=== PATIENT | female | born 1995 | race Caucasian/White ===

== ENCOUNTER → 2017-09-13 16:36 | Outpatient (CLI) | payer BC, MEDICAID, SELFPAY ==
[2017-09-13 20:06] LABS: Chlamydia Trachomatis by PCR Negative (Negative); Neisserai gonorrhoeae by PCR Negative (Negative); Probe Check PASS; Sample Adequacy Control PASS; Specimen Processing Control PASS
== END ==
PROVIDERS: Visit Provider Obstetrics & Gynecology
DX: Z11.3 Encounter for screening for infections with a predominantly sexual mode of transmission (principal)
CPT/HCPCS: 87491; 87591

== ENCOUNTER → 2018-08-05 15:35 | Outpatient (CLI) | payer SELFPAY | PROVIDERS: Visit Provider Obstetrics & Gynecology | DX: Z12.4 Encounter for screening for malignant neoplasm of cervix (principal) | CPT/HCPCS: 88175; G0145 ==

== ENCOUNTER → 2020-12-28 | Outpatient (CLI) | payer BC, SELFPAY ==
[2020-12-31 09:36] LABS: Chlamydia By Nucleic Acid AMP Negative (Negative)
[2020-12-31 10:38] LABS: Gonococcus By Nucleic Acid AMP Negative (Negative)
== END | disposition home or self-care (01) ==
LOC: LABSPEC 13:42
PROVIDERS: Visit Provider Obstetrics & Gynecology
DX: Z11.3 Encounter for screening for infections with a predominantly sexual mode of transmission (principal)
CPT/HCPCS: 87491; 87591

== ENCOUNTER → 2021-01-11 09:56 | Outpatient (CLI) | payer BC, SELFPAY ==
[2021-01-11 11:04] LABS: Glucose 75GTT - Fasting 105 mg/dL (70-99)
[2021-01-11 11:16] LABS: Insulin 75GTT - Fasting 17.3 mU/L (2.6-37.6)
[2021-01-11 11:59] LABS: Glucose 75GTT - 60 minutes 166 mg/dL (100-160)
[2021-01-11 12:04] LABS: Glucose 75GTT - 30 minutes 152 mg/dL (100-160)
[2021-01-11 12:05] LABS: Insulin 75GTT - 30 MIN 75.6 mU/L (Not Estab.)
[2021-01-11 12:58] LABS: Glucose 75GTT - 120 minutes 138 mg/dL (70-140)
[2021-01-11 13:05] LABS: Insulin 75GTT - 120 min 89.7 mU/L (Not Estab.)
== END ==
PROVIDERS: Referring Provider Obstetrics & Gynecology; Visit Provider Obstetrics & Gynecology
DX: R73.09 Other abnormal glucose (principal); E28.2 Polycystic ovarian syndrome; Z83.3 Family history of diabetes mellitus
CPT/HCPCS: 36415; 82951; 82952; 83525

== ENCOUNTER → 2021-01-24 10:17 | Outpatient (CLI) | payer BC, SELFPAY ==
[2021-01-24 11:55] LABS: T3 Total - Triiodothyronine 1.32 ng/mL (0.6-1.81)
[2021-01-24 11:59] LABS: Estradiol 35.7 pg/mL; Prolactin 5.2 ng/mL; T4 Free Direct 1.03 ng/dL (0.76-1.46); Thyroid Stim Hormone (TSH) 1.22 uIU/mL (0.358-3.74)
[2021-01-25 04:08] LABS: DHEA Sulfate 64.5 ug/dL (110.0-431.7)
[2021-01-25 08:55] LABS: Sex Hormone-binding Globulin 31.6 nmol/L (24.6-122.0)
[2021-01-27 22:08] LABS: 17-Hydroxyprogesterone 27 ng/dL (.)
== END ==
PROVIDERS: Visit Provider Obstetrics & Gynecology
DX: R73.09 Other abnormal glucose (principal); Z83.3 Family history of diabetes mellitus; E28.2 Polycystic ovarian syndrome
CPT/HCPCS: 36415; 82533; 82627; 82670; 83001; 83498; 84146; 84270; 84403; 84439; 84443; 84480; 82626

== ENCOUNTER → 2021-03-08 | Outpatient (CLI) | payer BC, SELFPAY ==
[2021-03-10 22:06] LABS: Chlamydia By Nucleic Acid AMP Negative (Negative)
[2021-03-10 22:57] LABS: Gonococcus By Nucleic Acid AMP Negative (Negative)
== END | disposition home or self-care (01) ==
LOC: LABSPEC 16:22
PROVIDERS: Visit Provider Obstetrics & Gynecology
DX: Z11.3 Encounter for screening for infections with a predominantly sexual mode of transmission (principal)
CPT/HCPCS: 87491; 87591